=== PATIENT | male | born 1945 ===

== ENCOUNTER 2018-04-05 09:58 | Emergency (ER) | payer MEDICARE ==
[2018-04-05 10:00] VITALS: BMI 41.0
[2018-04-05] MEDS ORDERED: Amoxicillin-Clav 875-125 mg Tab PO STA (11:14)
--- NOTE | 2018-04-05 11:16 | ED PDOC ---
HPI: CCC, URI, Sore Throat Time Seen by Provider: 04/05/18 10:28 Chief Complaint (Nursing): ENT Problem Chief Complaint (Provider): Ear pain History Per: Patient Additional Complaint(s): 72 yo male, DM, HTN, Gout, left ear pain for a week, no discharges noted, stated that the pain started on the right ear. no other symptoms Past Medical History Reviewed: Nursing Documentation, Vital Signs Vital Signs: Last Vital Signs Temp 98.3 F 04/05/18 10:00 Pulse 85 04/05/18 10:00 Resp 17 04/05/18 10:00 BP 143/65 04/05/18 10:00 Pulse Ox 93 L 04/05/18 10:00 - Medical History PMH: Arthritis (Gout), Diabetes, HTN, Peripheral Edema, Chronic Kidney Disease, Rheumatoid Arthritis - Family History Family History: States: Unknown Family Hx - Living Arrangements Living Arrangements: With Family - Immunization History Hx Tetanus Toxoid Vaccination: No Hx Influenza Vaccination: No Hx Pneumococcal Vaccination: No - Home Medications Home Medications: Ambulatory Orders Medication Instructions Recorded Aspirin [Ecotrin] 81 mg PO DAILY 11/07/16 Atorvastatin [Lipitor] 10 mg PO DAILY 11/07/16 Doxazosin [Cardura] 1 mg PO DAILY 11/07/16 Febuxostat [Uloric] 80 mg PO DAILY 11/07/16 Gabapentin [Neurontin] 100 mg PO HS 11/07/16 Insulin Glargine,Hum.rec.anlog 15 unit SQ DIN 11/07/16 [Lantus] Losartan [Cozaar] 50 mg PO DAILY 11/07/16 Magnesium Oxide [Magnesium] 400 mg PO DAILY 11/07/16 Paricalcitol 2 mcg PO DAILY 11/07/16 SITagliptin [Januvia] 25 mg PO DAILY 11/07/16 Sevelamer Carbonate [Renvela] 800 mg PO TID 11/07/16 Sodium Bicarbonate Tab 650 mg PO TID 11/07/16 Torsemide [Demadex] 100 mg PO DAILY 11/07/16 traMADol/Acetaminophen [Ultracet 1 tab PO Q6 PRN 11/07/16 37.5/325 mg] Aspirin [Aspirin Chewable] 81 mg PO DAILY 11/08/16 Doxazosin [Cardura] 1 mg PO DAILY tab 11/08/16 Insulin Human Regular [Novolin R] 0 unit SC ACHS unit 11/08/16 Losartan [Cozaar] 50 mg PO DAILY tab 11/08/16 Rosuvastatin Calcium 2.5 [Crestor] 2.5 mg PO HS #30 tab 11/08/16 SITagliptin [Januvia] 25 mg PO DAILY tab 11/08/16 Sevelamer Carbonate [Renvela] 800 mg PO TIDCC tab 11/08/16 Torsemide [Demadex] 100 mg PO DAILY tab 11/08/16 Amoxicillin/Clavulanate [Augmentin 1 tab PO BID #14 tab 04/05/18 875 MG-125 MG] Ciprofloxacin/Hydrocortisone 10 ml OT TID #1 drops.susp 04/05/18 [Cipro Hc Otic Suspension] Ibuprofen [Motrin] 600 mg PO Q6 #20 tab 04/05/18 - Allergies Allergies/Adverse Reactions: Allergies Allergy/AdvReac Type Severity Reaction Status Date / Time No Known Allergies Allergy Verified 11/06/16 13:09 Review of Systems ROS Statement: Except As Marked, All Systems Reviewed And Found Negative ENT: Positive for: Ear Pain Physical Exam - Reviewed Nursing Documentation Reviewed: Yes Vital Signs Reviewed: Yes - Physical Exam Appears: Positive for: Non-toxic, No Acute Distress, Uncomfortable Head Exam: Positive for: ATRAUMATIC, NORMAL INSPECTION, NORMOCEPHALIC Skin: Positive for: Normal Color, Warm, DRY Eye Exam: Positive for: EOMI, Normal appearance, PERRL ENT: Positive for: TM Is/Are (right TM partially visualized to to edema on tragus, (+) eryhtema noted. no driange) Neck: Positive for: Normal, Painless ROM Cardiovascular/Chest: Positive for: Regular Rate, Rhythm Respiratory: Positive for: CNT, Normal Breath Sounds Gastrointestinal/Abdominal: Positive for: Normal Exam, Soft Back: Positive for: Normal Inspection Extremity: Positive for: Normal ROM Neurologic/Psych: Positive for: Alert, Oriented - ECG O2 Sat by Pulse Oximetry: 93 Medical Decision Making Medical Decision Making: FS glucose 111 Due tp PE findings, Pt medicated with Augmentin and Ibuporfen while in eD Advised to continue on medications at t=home and follow up with PMD Disposition - Clinical Impression Clinical Impression: Otitis externa - Patient ED Disposition Is Patient to be Admitted: No - Disposition Disposition: Routine/Home Disposition Time: 11:20 Condition: STABLE Prescriptions: Amoxicillin/Clavulanate [Augmentin 875 MG-125 MG] 1 tab PO BID #14 tab Ciprofloxacin/Hydrocortisone [Cipro Hc Otic Suspension] 10 ml OT TID #1 drops.susp Ibuprofen [Motrin] 600 mg PO Q6 #20 tab Instructions: Outer Ear Infection (DC) Forms: [employer] Up (Indonesian)
[2018-04-05] MEDS ORDERED: Amoxicillin-Clav 875-125 mg Tab PO ONE (11:32)
[2018-04-05 11:45] VITALS: BP 130/78; PULSE 78; RESP 19; TEMP 97
[2018-04-18 21:24] VITALS: O2SAT 93
== END 2018-04-05 11:46 | disposition home or self-care (01) ==
LOC: H.ER 09:58
DX: H60.90 Unspecified otitis externa, unspecified ear (principal); E11.22 Type 2 diabetes mellitus with diabetic chronic kidney disease; I12.9 Hypertensive chronic kidney disease with stage 1 through stage 4 chronic kidney disease, or unspecified chronic kidney disease; M06.9 Rheumatoid arthritis, unspecified; N18.9 Chronic kidney disease, unspecified; Z79.4 Long term (current) use of insulin; Z79.82 Long term (current) use of aspirin